=== PATIENT | female | born 1970 | race Caucasian/White ===

== ENCOUNTER 2019-01-10 14:24 | Emergency (ER) | payer BC ==
--- NOTE | 2019-01-10 15:12 | EDPHY ---
H & P Stated Complaint: Palpitations Time Seen by Provider: 01/10/19 15:12 HPI/ROS: CHIEF COMPLAINT: Palpitations HISTORY OF PRESENT ILLNESS: Patient presents the ED with palpitations that occurred earlier today. She is visiting from [place] and has been in [place] for the past 4 days. The patient does have a history of pulmonary embolism that occurred altitude. She is currently anticoagulated and has not missed any of her regular medications. The patient denies any pleuritic chest pain currently. She denies any asymmetric calf pain or swelling. She denies fever, cough or congestion. She does have a history of orthostasis and associated palpitations. She has no history of a known cardiac arrhythmia aside from PVCs. The patient denies any melena or hematemesis. She denies additional acute medical complaints. REVIEW OF SYSTEMS: A comprehensive 10 point review of systems is otherwise negative aside from elements mentioned in the history of present illness. Source: Patient - Personal History LMP (Females 10-55): 8-14 Days Ago Current Tetanus Diphtheria and Acellular Pertussis (TDAP): Unsure - Medical/Surgical History Hx Asthma: Yes Hx Chronic Respiratory Disease: No Hx Diabetes: No Hx Cardiac Disease: No Hx Renal Disease: No Hx Cirrhosis: No Hx Alcoholism: No Hx HIV/AIDS: No Hx Splenectomy or Spleen Trauma: No Other PMH: PE - Social History Smoking Status: Never smoked - Physical Exam Exam: General Appearance: Alert, no distress Eyes: Pupils equal and round no pallor or injection ENT, Mouth: Mucous membranes moist Respiratory: There are no retractions, lungs are clear to auscultation Cardiovascular: Regular rate and rhythm Gastrointestinal: Abdomen is soft and nontender, no masses, bowel sounds normal Neurological: A&O, normal motor function, normal sensory exam, normal cranial nerves Skin: Warm and dry, no rashes Musculoskeletal: Neck is supple nontender Extremities: symmetrical, full range of motion, specifically no evidence of DVT Constitutional: Initial Vital Signs Temperature (C) 36.5 C 01/10/19 14:32 Heart Rate 80 01/10/19 14:32 Respiratory Rate 17 01/10/19 14:32 Blood Pressure 158/98 H 01/10/19 14:32 O2 Sat (%) 96 01/10/19 14:32 O2 Delivery Mode Room Air Allergies/Adverse Reactions: No Known Allergies Allergy (Unverified 01/10/19 14:30) Home Medications: Medication Instructions Recorded Albuterol 01/10/19 Singulair 01/10/19 Symbicort 160-4.5 Mcg Inh (*) 01/10/19 Xarelto 01/10/19 Medical Decision Making - Diagnostics EKG Interpretation: EKG: Complete interpretation has been separately recorded in the [facility] archive. Summary impression: Sinus rhythm, rate 71 ED Course/Re-evaluation: Patient presents to the ED after an episode of resolved palpitations. The patient is currently anticoagulated. She has stable vital signs. I doubt this is a presentation of acute PE. I do not feel that further workup is indicated. The patient was placed on a monitor without evidence of ectopy. Her vital signs are stable. The patient has no evidence of an obvious anemia or metabolic derangement. At this point time the patient is reassured. She may have simply been experiencing palpitations from slight dehydration and altitude illness. She is comfortable being discharged home in stable condition. Differential Diagnosis: Differential diagnosis considered includes arrhythmia, anemia, dehydration, metabolic derangement - Data Points Laboratory Results: 01/10/19 01/10/19 15:31 15:28 POC Hgb 14.6 gm/dL gm/dL (12.6-16.3) POC Hct 43 % % (38-47) POC Sodium 142 mEq/L mEq/L (135-145) POC Potassium 3.6 mEq/L mEq/L (3.3-5.0) POC Chloride 103 mEq/L mEq/L (97-110) POC Total CO2 27 mEq/L mEq/L (22-31) POC BUN 8 mg/dL mg/dL (7-23) POC Creatinine 0.8 mg/dL mg/dL (0.6-1.0) POC Glucose 84 mg/dL mg/dL (70-100) POC Troponin I 0.00 ng/mL ng/mL (0.00-0.08) Point of Care Test Results: Chemistry 01/10/19 01/10/19 15:31 15:28 POC Sodium 142 mEq/L mEq/L (135-145) POC Potassium 3.6 mEq/L mEq/L (3.3-5.0) POC Chloride 103 mEq/L mEq/L (97-110) POC Total CO2 27 mEq/L mEq/L (22-31) POC BUN 8 mg/dL mg/dL (7-23) POC Creatinine 0.8 mg/dL mg/dL (0.6-1.0) POC Glucose 84 mg/dL mg/dL (70-100) POC Troponin I 0.00 ng/mL ng/mL (0.00-0.08) ISTAT H&H 01/10/19 15:31 POC Hgb 14.6 gm/dL gm/dL (12.6-16.3) POC Hct 43 % % (38-47) Departure - Departure Disposition: Home, Routine, Self-Care Clinical Impression: Palpitations Condition: Good Instructions: Heart Palpitations (ED) Additional Instructions: 1. Return to the ED for markedly worsening symptoms, fever, severe shortness of breath or other concerns. 2. Please follow up with your regular physician as scheduled. 3. Your EKG, laboratory testing including blood count and electrolytes are normal. Your cardiac enzymes are also normal.
--- NOTE | 2019-01-10 15:30 | CPEKG ---
Test Reason : OPEN Blood Pressure : / mmHG Vent. Rate : 071 BPM Atrial Rate : 071 BPM P-R Int : 153 ms QRS Dur : 100 ms QT Int : 424 ms P-R-T Axes : 074 069 048 degrees QTc Int : 461 ms Sinus rhythm Confirmed by Frank Ruffin ([id number]) on 01/10/2019 3:29:36 PM Referred By: Frank Ruffin Confirmed By:Frank Ruffin
[2019-01-10 15:58] VITALS: BP 133/88
== END 2019-01-10 15:57 | disposition home or self-care (01) ==
DX: R00.2 Palpitations (principal); Z86.711 Personal history of pulmonary embolism; Z79.01 Long term (current) use of anticoagulants
CPT/HCPCS: 82435-PO; 82565-PO; 82947-PO; 84132-PO; 84295-PO; 84484-ER; 84520-PO; 85014-ER